=== PATIENT | male | born 1980 | race Caucasian/White ===

== ENCOUNTER 2017-12-18 23:42 | Emergency (ER) | payer OTHER ==
[2017-12-19] MEDS ORDERED: KETOROLAC 30 MG/ML INJ ONE (00:49)
[2017-12-19] MEDS ORDERED: HYDROCODONE/APAP 10/325 TAB ONE (05:50)
[2017-12-19] MEDS ORDERED: HYDROMORPHONE HCL 1 MG/ML INJ ONE (06:43)
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
--- NOTE | 2017-12-19 11:45 | RAD REPORT ---
EXAM DESCRIPTION: CT - Head Brain Wo Cont - 12/19/2017 7:32 am CLINICAL HISTORY: PAIN Headache COMPARISON: HEAD BRAIN W O CONTRAST dated 08/06/2008; Facial Bones W/ Mpr dated 12/19/2017 TECHNIQUE: All CT scans are performed using dose optimization technique as appropriate and may inclu de automated exposure control or mA/KV adjustment according to patient size. FINDINGS: No intracranial hemorrhage, hydrocephalus or extra-axial fluid collection.No areas of brai n edema or evidence of midline shift. Mild mucoperiosteal thickening affects the sphenoid sinus. The paranasal sinuses and mastoids are oth erwise clear. The calvarium is intact. IMPRESSION: No acute intracranial abnormality. Minimal sphenoid sinus thickening.
--- NOTE | 2017-12-19 11:48 | RAD REPORT ---
EXAM DESCRIPTION: CT - CTFB CLINICAL HISTORY: PAIN Facial pain and swelling. COMPARISON: Head Brain Wo Cont dated 12/19/2017; HEAD BRAIN W O CONTRAST dated 08/06/2008; [id number] VICAL-WO dated 08/06/2008 TECHNIQUE: Axial 2 mm thick images of the face were obtained with sagittal and coronal reconstructio n images. All CT scans are performed using dose optimization technique as appropriate and may include automated exposure control or mA/KV adjustment according to patient size. FINDINGS: No acute facial bone fracture is seen.The mandible is intact. Significant erosion is seen involving the right first mandibular molar. The globes and orbital contents are grossly unremarkable.Mild sphenoid mucosal thickening. IMPRESSION: Negative for facial bone fracture. Mild sphenoid mucosal thickening. Significant erosion involving the right first mandibular molar. Direct assessment would be advised.
--- NOTE | 2017-12-21 06:59 | EKG ---
Test Date: 2017-12-19 Test Time: 01:20:57 Bale Piler: MEASUREMENT RESULTS: Intervals: Rate: 44 ME: 136 QRSD: 104 QT: 452 QTc: 386 [place]: P: 71 ME: 136 QRS: 87 T: 81 INTERPRETIVE STATEMENTS: Marked sinus bradycardia Abnormal ECG No previous ECG available for comparison Electronically Signed On 12-21-17 06:58:38 CDT by Lalo Turcios
== END 2017-12-19 07:59 | disposition short-term general hospital (02) ==
LOC: ER 23:42
DX: M79.2 Neuralgia and neuritis, unspecified (principal); F17.210 Nicotine dependence, cigarettes, uncomplicated
CPT/HCPCS: 70450; 70486; 70487; 76377; 93005; 96372; 99285; J1170